=== PATIENT | female | born 1985 | race Caucasian/White ===

== ENCOUNTER 2018-09-25 21:14 | Emergency (ER) | payer OTHER ==
[2018-09-25 22:46] LABS: APPEARANCE, URINE HAZY (CLEAR); BACTERIA, URINE AUTO 1+ (NEGATIVE); BILIRUBIN, URINE AUTO NEGATIVE (NEGATIVE); BLOOD, URINE BLOOD 3+ (NEGATIVE); COLOR, URINE YELLOW (YELLOW); GLUCOSE, URINE (UA) AUTO NEGATIVE (NEGATIVE); KETONE, URINE AUTO NEGATIVE (NEGATIVE); LEUKOCYTE ESTERASE, URINE AUTO TRACE (NEGATIVE); MUCUS, URINE SMALL (NEGATIVE); NITRITE, URINE AUTO NEGATIVE (NEGATIVE); PROTEIN, URINE AUTO NEGATIVE (NEGATIVE); RBC, URINE AUTO TNTC /HPF (0-3); SQUAMOUS EPITHELIAL CELL UR AU 1 /HPF (0-6); UROBILINOGEN, URINE AUTO 0.2 mg/dL (0.0-2.0); WBC, URINE AUTO 17 /HPF (0-3)
[2018-09-25] MEDS: NS 1,000 ML IV (22:51)
[2018-09-25 22:54] LABS: BASO # 0.1 10^3/uL (0.0-0.2); BASO % 0.4 % (0.0-1.0); EOS # 0.2 10^3/uL (0.0-0.50); EOS % 1.7 % (0.0-3.0); HEMATOCRIT 41.7 % (36.0-47.0); HEMOGLOBIN 14.5 g/dl (12.0-15.5); IMMATURE GRANULOCYTE % 0.3 % (0-3.0); LYMPH # 3.4 10^3/uL (1.5-4.5); LYMPH % 29.7 % (24.0-44.0); MEAN CORPUSCULAR HEMOGLOBIN 31.9 pg (27.0-33.0); MEAN CORPUSCULAR HGB CONC 34.8 g/dl (32.0-36.5); MEAN CORPUSCULAR VOLUME 91.6 fl (80.0-96.0); MONO # 0.6 10^3/uL (0.0-0.8); NEUTROPHILS # 7.2 10^3/uL (1.8-7.7); NEUTROPHILS % 62.9 % (36.0-66.0); PLATELET COUNT, AUTOMATED 289 10^3/uL (150-450); RED BLOOD COUNT 4.55 10^6/uL (4.00-5.40); RED CELL DISTRIBUTION WIDTH 12.6 % (11.5-14.5); WHITE BLOOD COUNT 11.5 10^3/uL (4.0-10.0)
[2018-09-25 23:24] LABS: ANION GAP 14 MEQ/L (8-16); BLOOD UREA NITROGEN 14 MG/DL (7-18); CALCIUM LEVEL 8.6 MG/DL (8.5-10.1); CARBON DIOXIDE LEVEL 23 MEQ/L (21-32); CHLORIDE LEVEL 110 MEQ/L (98-107); CREATININE FOR GFR 0.77 MG/DL (0.55-1.30); GLOMERULAR FILTRATION RATE > 60.0 (>60); GLUCOSE, FASTING 89 MG/DL (70-100); HCG, SERUM QUANTITATIVE 357 MIU/ML; POTASSIUM SERUM 4.2 MEQ/L (3.5-5.1); SODIUM LEVEL 147 MEQ/L (136-145)
== END 2018-09-26 00:28 | disposition home or self-care (01) ==
LOC: M ED 09-26 00:28
DX: O20.8 Other hemorrhage in early pregnancy (principal)
CPT/HCPCS: 76801

== ENCOUNTER 2018-09-28 12:16 | Emergency (ER) | payer OTHER ==
[2018-09-28 13:09] LABS: BASO # 0.1 10^3/uL (0.0-0.2); BASO % 0.5 % (0.0-1.0); EOS # 0.2 10^3/uL (0.0-0.50); EOS % 1.7 % (0.0-3.0); HEMATOCRIT 42.1 % (36.0-47.0); HEMOGLOBIN 14.4 g/dl (12.0-15.5); IMMATURE GRANULOCYTE % 0.3 % (0-3.0); LYMPH # 2.8 10^3/uL (1.5-4.5); LYMPH % 30.5 % (24.0-44.0); MEAN CORPUSCULAR HEMOGLOBIN 31.8 pg (27.0-33.0); MEAN CORPUSCULAR HGB CONC 34.2 g/dl (32.0-36.5); MEAN CORPUSCULAR VOLUME 92.9 fl (80.0-96.0); MONO # 0.5 10^3/uL (0.0-0.8); MONO % 5.3 % (0.0-5.0); NEUTROPHILS # 5.8 10^3/uL (1.8-7.7); NEUTROPHILS % 61.7 % (36.0-66.0); PLATELET COUNT, AUTOMATED 261 10^3/uL (150-450); RED BLOOD COUNT 4.53 10^6/uL (4.00-5.40); RED CELL DISTRIBUTION WIDTH 12.8 % (11.5-14.5); WHITE BLOOD COUNT 9.3 10^3/uL (4.0-10.0)
[2018-09-28 13:31] LABS: KETONE, URINE AUTO RFX NEGATIVE (NEGATIVE); MUCUS, URINE RFX SMALL (NEGATIVE); NITRITE, URINE AUTO RFX NEGATIVE (NEGATIVE); RBC, URINE AUTO RFX TNTC /HPF (0-3); SPECIFIC GRAVITY UR AUTO RFX 1.019 (1.002-1.035); SQUAM EPITHELIAL CELL UR AURFX 2 /HPF (0-6); WBC, URINE AUTO RFX 4 /HPF (0-3)
[2018-09-28 13:40] LABS: HCG, SERUM QUANTITATIVE 526 MIU/ML
[2018-09-28 13:41] LABS: LEUKOCYTE ESTERASE UR AUTO RFX 1+ (NEGATIVE)
== END 2018-09-28 14:16 | disposition home or self-care (01) ==
LOC: M ED 12:16
DX: O20.0 Threatened abortion (principal); O99.280 Endocrine, nutritional and metabolic diseases complicating pregnancy, unspecified trimester; E05.90 Thyrotoxicosis, unspecified without thyrotoxic crisis or storm; Z88.5 Allergy status to narcotic agent; Z3A.00 Weeks of gestation of pregnancy not specified
CPT/HCPCS: 76801

== ENCOUNTER → 2018-09-28 | Outpatient (CLI) | payer OTHER ==
[2018-09-28 08:37] LABS: HCG, SERUM QUANTITATIVE 737 MIU/ML
== END ==
LOC: M LAB 07:23
DX: R79.89 Other specified abnormal findings of blood chemistry (principal)

== ENCOUNTER → 2018-09-30 | Outpatient (CLI) | payer OTHER ==
[2018-09-30 13:24] LABS: HCG, SERUM QUANTITATIVE 194 MIU/ML
== END ==
LOC: M LAB 11:50
DX: O00.80 Other ectopic pregnancy without intrauterine pregnancy (principal)
CPT/HCPCS: 84702

== ENCOUNTER → 2018-11-06 | Outpatient (CLI) | payer OTHER | LOC: M SMT 13:22 | PROVIDERS: ATTEND Advanced Practice Midwife | DX: N91.2 Amenorrhea, unspecified (principal) ==

== ENCOUNTER → 2018-11-08 | Outpatient (CLI) | payer OTHER | LOC: M LAB 16:58 | PROVIDERS: ATTEND Advanced Practice Midwife | DX: N91.2 Amenorrhea, unspecified (principal) ==

== ENCOUNTER 2018-11-22 13:31 | Emergency (ER) | payer OTHER ==
[~2018-11-22] VITALS: Ht 165.1 cm; Wt 90.9 kg
[2018-11-22] MEDS ORDERED: PRENTAB45 PO (13:44)
[2018-11-22 15:07] LABS: BASO % 0.4 % (0.0-1.0); EOS # 0.1 10^3/uL (0.0-0.50); EOS % 1.3 % (0.0-3.0); HEMOGLOBIN 13.4 g/dl (12.0-15.5); LYMPH # 2.8 10^3/uL (1.5-4.5); LYMPH % 28.1 % (24.0-44.0); MEAN CORPUSCULAR HEMOGLOBIN 31.3 pg (27.0-33.0); MEAN CORPUSCULAR HGB CONC 34.4 g/dl (32.0-36.5); MEAN CORPUSCULAR VOLUME 91.1 fl (80.0-96.0); MONO # 0.5 10^3/uL (0.0-0.8); NEUTROPHILS # 6.5 10^3/uL (1.8-7.7); NEUTROPHILS % 64.7 % (36.0-66.0); PLATELET COUNT, AUTOMATED 270 10^3/uL (150-450); RED BLOOD COUNT 4.28 10^6/uL (4.00-5.40); WHITE BLOOD COUNT 10.1 10^3/uL (4.0-10.0)
--- NOTE | 2018-11-22 15:42 | REP ---
Clinical: Vaginal bleeding. Dating and viability. Technique: Transabdominal and transvaginal first trimester obstetrical ultrasound with color Doppler evaluation. Findings: Single live early intrauterine is appreciated. Gestational sac with yolk sac and pole identified. Mckay-rump length of 3 mm corresponds to 5 weeks 6 days gestational age with estimated date of delivery 07/19/2019 . heart rate equals 95 beats per minute. No gross abnormalities are identified. Bilateral maternal ovaries are normal in appearance and vascularity without torsion. Impression: Single live early intrauterine at 5 weeks 6 days gestational age. Complete anatomical assessment should be performed and 19-20 weeks. Electronically Signed by Rufus Mejia MD 11/22/2018 03:34 P
[2018-11-22] MEDS ORDERED: LIDOCAINE 1% SDV 5 ML VIAL DILUENT ONE (16:00)
[2018-11-22] MEDS ORDERED: AZITHROMYCIN 250 MG TAB PO ONE (16:00)
[2018-11-22] MEDS ORDERED: cefTRIAXone SOD 250 MG VIAL (J0696) As Ordered ONE (16:00)
[2018-11-22 16:13] LABS: BLOOD UREA NITROGEN 9 MG/DL (7-18); GLUCOSE, FASTING 86 MG/DL (70-100)
[2018-11-22 16:14] LABS: CALCIUM LEVEL 8.8 MG/DL (8.5-10.1); CARBON DIOXIDE LEVEL 26 MEQ/L (21-32); CHLORIDE LEVEL 103 MEQ/L (98-107); CREATININE FOR GFR 0.72 MG/DL (0.55-1.30); GLOMERULAR FILTRATION RATE > 60.0 (>60); POTASSIUM SERUM 3.8 MEQ/L (3.5-5.1); SODIUM LEVEL 138 MEQ/L (136-145)
[2018-11-22] MEDS ORDERED: cefTRIAXone SOD 250 MG VIAL (J0696) IM ONE (16:15)
[2018-11-22 16:19] LABS: HCG, SERUM QUANTITATIVE 10137 MIU/ML
[2018-11-22 16:58] VITALS: BP 136/72
[2018-11-22 17:16] LABS: CHLAMYDIA DNA AMPLIFICATION NEGATIVE (NEGATIVE); GC DNA AMPLIFICATION NEGATIVE (NEGATIVE)
[2018-12-02] MEDS ORDERED: TYLE325T5 PO (15:24)
== END 2018-11-22 17:03 | disposition home or self-care (01) ==
LOC: M ED 13:31
DX: O20.0 Threatened abortion (principal); O23.511 Infections of cervix in pregnancy, first trimester; O99.281 Endocrine, nutritional and metabolic diseases complicating pregnancy, first trimester; Z87.59 Personal history of other complications of pregnancy, childbirth and the puerperium; Z79.899 Other long term (current) drug therapy; Z88.5 Allergy status to narcotic agent
CPT/HCPCS: 76801; 76817; 80048; 81001; 84702; 85025; 86900; 86901; 87086; 87210; 87491; 87591; 93976; 96372; 99284; J0696

== ENCOUNTER 2018-11-27 11:13 | Emergency (ER) | payer OTHER ==
[~2018-11-27] VITALS: Ht 165.1 cm; Wt 93.2 kg
[~2018-11-27 11:13] MED LIST: PRENTAB45 PO
[2018-11-27] MEDS ORDERED: NS 1,000 ML IV ONE (12:15)
[2018-11-27] MEDS ORDERED: ACETAMINOPHEN TAB 650MG DOSE (2X325MG) PO ONE (12:15)
[2018-11-27 13:27] LABS: BASO % 0.4 % (0.0-1.0); EOS % 0.3 % (0.0-3.0); HEMATOCRIT 40.5 % (36.0-47.0); HEMOGLOBIN 13.8 g/dl (12.0-15.5); LYMPH # 0.9 10^3/uL (1.5-4.5); LYMPH % 11.7 % (24.0-44.0); MEAN CORPUSCULAR HEMOGLOBIN 31.3 pg (27.0-33.0); MEAN CORPUSCULAR HGB CONC 34.1 g/dl (32.0-36.5); MEAN CORPUSCULAR VOLUME 91.8 fl (80.0-96.0); MONO # 0.5 10^3/uL (0.0-0.8); MONO % 6.8 % (0.0-5.0); NEUTROPHILS # 6.2 10^3/uL (1.8-7.7); NEUTROPHILS % 80.2 % (36.0-66.0); PLATELET COUNT, AUTOMATED 221 10^3/uL (150-450); RED BLOOD COUNT 4.41 10^6/uL (4.00-5.40); WHITE BLOOD COUNT 7.8 10^3/uL (4.0-10.0)
[2018-11-27 13:32] LABS: INFLUENZA A AMPLIFICATION POSITIVE (NEGATIVE); INFLUENZA B AMPLIFICATION NEGATIVE (NEGATIVE)
[2018-11-27] MEDS ORDERED: ALBUTEROL SULFATE 2.5 MG/0.5 ML INH NEB SOLN INH ONE (14:00)
[2018-11-27 14:12] LABS: BLOOD UREA NITROGEN 9 MG/DL (7-18); CALCIUM LEVEL 8.6 MG/DL (8.5-10.1); CARBON DIOXIDE LEVEL 24 MEQ/L (21-32); CHLORIDE LEVEL 102 MEQ/L (98-107); CREATININE FOR GFR 0.78 MG/DL (0.55-1.30); GLOMERULAR FILTRATION RATE > 60.0 (>60); GLUCOSE, FASTING 85 MG/DL (70-100); HCG, SERUM QUANTITATIVE 13291 MIU/ML; POTASSIUM SERUM 3.9 MEQ/L (3.5-5.1); SODIUM LEVEL 135 MEQ/L (136-145)
[2018-11-27] MEDS ORDERED: OSEL75CA PO (15:00)
[2018-11-27] MEDS ORDERED: VENTAER INH (15:00)
[2018-11-27 15:19] VITALS: BP 128/75
[2018-12-02] MEDS ORDERED: TYLE325T5 PO (15:24)
== END 2018-11-27 15:36 | disposition home or self-care (01) ==
LOC: M ED 11:13
DX: O99.511 Diseases of the respiratory system complicating pregnancy, first trimester (principal); O26.851 Spotting complicating pregnancy, first trimester; Z79.899 Other long term (current) drug therapy; Z88.5 Allergy status to narcotic agent

== ENCOUNTER 2018-12-04 14:45 | Day surgery (SDC) | payer OTHER ==
[~2018-12-04] VITALS: Ht 165.1 cm; Wt 92.5 kg
[~2018-12-04 14:45] MED LIST changes: +KETOROLAC 60 MG/2 ML VIAL (J1885) As Ordered ONE; +LIDOCAINE 2% INJ 100 MG/5 ML SDV (FOR ANES.) As Ordered ONE; +MIDAZOLAM INJ 2 MG/2 ML VIAL (J2250) As Ordered ONE; +ONDANSETRON 4MG/2ML VIAL (J2405) As Ordered ONE; +OSEL75CA PO; +PROPOFOL 200 MG/20 ML VIAL As Ordered ONE; +TYLE325T5 PO; +VENTAER INH; +dexameTHASONE 4 MG/ML 1ML VIAL (J1100) As Ordered ONE; +fentaNYL 100 MCG/2 ML INJECTION (J3010) As Ordered ONE
[2018-12-04] MEDS ORDERED: LR 1,000 ML IV ONE (15:00)
[2018-12-04] MEDS ORDERED: SCOPOLAMINE 1MG TRANSDERMAL PATCH As Ordered ONE (16:19)
[2018-12-04] MEDS ORDERED: SCOPOLAMINE 1MG TRANSDERMAL PATCH TOP ONE (16:45)
[2018-12-04] MEDS ORDERED: METOCLOPRAMIDE INJ 10MG/2ML VIAL (J2765) As Ordered ONE (16:56)
[2018-12-04] MEDS ORDERED: ACETAMINOPHEN 500 MG TAB PO ONE (18:00)
[2018-12-04] MEDS ORDERED: DOXYCYCLINE HYCLATE 100 MG TAB PO ONE (18:00)
[2018-12-04] MEDS ORDERED: LR 1,000 ML IV SCH ×2 (18:00)
[2018-12-04] MEDS ORDERED: PERCOCET 5MG/325MG TAB PO PRN (18:00)
[2018-12-04] MEDS ORDERED: METOCLOPRAMIDE INJ 10MG/2ML VIAL (J2765) IV PRN (18:00)
[2018-12-04] MEDS ORDERED: MEPERIDINE INJ 25 MG/ML VIAL (J2175) IV PRN (18:00)
[2018-12-04] MEDS ORDERED: ONDANSETRON 4MG/2ML VIAL (J2405) IV PRN (18:00)
[2018-12-04] MEDS ORDERED: fentaNYL 100 MCG/2 ML INJECTION (J3010) IV PRN (18:00)
[2018-12-04 20:30] VITALS: BP 141/73
--- NOTE | 2018-12-07 16:06 | RO ---
DATE OF PROCEDURE: 12/04/2018 PREOPERATIVE DIAGNOSIS: Missed . POSTOPERATIVE DIAGNOSIS: Possible complete . PROCEDURE: Dilation, evacuation, and curettage. SURGEON: Terell Gray MD LEATHER SKINNER: ANESTHESIA: General endotracheal. ESTIMATED BLOOD LOSS: Minimal. FINDINGS: No evidence of products of conception on exam or intraoperative ultrasound. Normal size uterus, midline posthion. Minimal bleeding. OPERATIVE SUMMARY: The patient was taken to the operating room where general endotracheal anesthesia was induced. She was prepped and draped in sterile fashion in the dorsal lithotomy position. The bladder was emptied with a catheter. A speculum was placed. The anterior lip of the cervix was grasped with a tenaculum. The cervix was dilated with tapered dilators. A #9 mm suction curette was placed through the internal os. Suction device was activated. The curette was gently rotated and no products of conception were noted to come through the suction tubing. A sharp curettage was performed. There was felt to be no products of conception retained in the uterus. A decision was made to use intraoperative ultrasound to guide the procedure. Abdominal ultrasound was performed during the procedure. A sharp curette was placed in the uterus and there was absolutely no evidence of intrauterine conception. There was no evidence of actual uterine either. Previous ultrasound both in the office and the hospital is reviewed. There was deemed to be very little chance of ectopic . A decision was made to terminate the procedure and order a stat quantitative hCG level. All instruments were removed. Sponge and instrument counts were correct. The patient was extubated and went to the recovery room.
== END 2018-12-04 20:55 | disposition home or self-care (01) ==
LOC: M SDC 14:45
PROVIDERS: ATTEND Specialist
DX: O02.1 Missed abortion (principal); K21.9 Gastro-esophageal reflux disease without esophagitis
CPT/HCPCS: 36415; 59820; 84702; 88305; J1100; J1885; J2250; J2405; J2765; J3010

== ENCOUNTER 2018-12-06 06:58 | Day surgery (SDC) | payer OTHER ==
[~2018-12-06] VITALS: Ht 165.1 cm; Wt 92.7 kg
[~2018-12-06 06:58] MED LIST changes: -KETOROLAC 60 MG/2 ML VIAL (J1885) As Ordered ONE; -LIDOCAINE 2% INJ 100 MG/5 ML SDV (FOR ANES.) As Ordered ONE; -MIDAZOLAM INJ 2 MG/2 ML VIAL (J2250) As Ordered ONE; -ONDANSETRON 4MG/2ML VIAL (J2405) As Ordered ONE; -PROPOFOL 200 MG/20 ML VIAL As Ordered ONE; -dexameTHASONE 4 MG/ML 1ML VIAL (J1100) As Ordered ONE; -fentaNYL 100 MCG/2 ML INJECTION (J3010) As Ordered ONE
[2018-12-06] MEDS ORDERED: SCOPOLAMINE 1MG TRANSDERMAL PATCH As Ordered ONE (07:51)
[2018-12-06] MEDS ORDERED: SCOPOLAMINE 1MG TRANSDERMAL PATCH TOP ONE (08:15)
[2018-12-06] MEDS ORDERED: BUPIVACAINE HCL 0.25% 30 ML VIAL As Ordered ONE (08:34)
[2018-12-06] MEDS ORDERED: NEOSTIGMINE 10 MG/10 ML VIAL (J2710) As Ordered ONE (08:59)
[2018-12-06] MEDS ORDERED: METOCLOPRAMIDE INJ 10MG/2ML VIAL (J2765) As Ordered ONE (08:59)
[2018-12-06] MEDS ORDERED: GLYCOPYRROLATE INJ 0.2 MG/ML 2 ML VIAL As Ordered ONE (08:59)
[2018-12-06] MEDS ORDERED: KETOROLAC 60 MG/2 ML VIAL (J1885) As Ordered ONE (08:59)
[2018-12-06] MEDS ORDERED: dexameTHASONE 4 MG/ML 1ML VIAL (J1100) As Ordered ONE (08:59)
[2018-12-06] MEDS ORDERED: PROPOFOL 200 MG/20 ML VIAL As Ordered ONE (08:59)
[2018-12-06] MEDS ORDERED: ONDANSETRON 4MG/2ML VIAL (J2405) As Ordered ONE (08:59)
[2018-12-06] MEDS ORDERED: fentaNYL 250 MCG/5 ML INJECTION (J3010) As Ordered ONE (08:59)
[2018-12-06] MEDS ORDERED: MIDAZOLAM INJ 2 MG/2 ML VIAL (J2250) As Ordered ONE (08:59)
[2018-12-06] MEDS ORDERED: ROCURONIUM BROMIDE 50 MG/5 ML VIAL As Ordered ONE (08:59)
[2018-12-06] MEDS ORDERED: LIDOCAINE 2% INJ 100 MG/5 ML SDV (FOR ANES.) As Ordered ONE (08:59)
[2018-12-06] MEDS ORDERED: OXYC1TAB23 PO (10:24)
[2018-12-06] MEDS ORDERED: HYDROMORPHONE HCL 0.5 MG/ 0.5 ML SYRINGE (J1170 PER 1) IV PRN (10:45)
[2018-12-06] MEDS ORDERED: fentaNYL 100 MCG/2 ML INJECTION (J3010) IV PRN (10:45)
[2018-12-06] MEDS ORDERED: LR 1,000 ML IV SCH ×2 (10:45)
[2018-12-06] MEDS ORDERED: PERCOCET 5MG/325MG TAB PO PRN ×2 (10:45)
[2018-12-06] MEDS ORDERED: ONDANSETRON 4MG/2ML VIAL (J2405) IV PRN (10:45)
[2018-12-06 11:10] VITALS: BP 123/71
[2018-12-06 11:40] VITALS: BP 117/57
[2018-12-06 12:10] VITALS: BP 105/57
[2018-12-06] MEDS ORDERED: ZOFR4SOL PO (13:00)
[2018-12-06] MEDS ORDERED: ONDANSETRON 4 MG TAB (S0181) PO SCH (13:00)
[2018-12-06] MEDS ORDERED: MOTR200T44 PO (14:11)
--- NOTE | 2018-12-08 09:55 | RO ---
DATE OF OPERATION: 12/06/2018 PREOPERATIVE DIAGNOSIS: Cornual ectopic . POSTOPERATIVE DIAGNOSIS: Left cornual ectopic . OPERATIVE PROCEDURE: SURGEON: Terell Gray MD MAINTENANCE OF WAY SUPERVISOR: ANESTHESIA: General endotracheal. ESTIMATED BLOOD LOSS: 10 mL. URINE OUTPUT: 200 mL. FINDINGS: Small mass of tissue at the left tubal ostium extending into the cornual region. There was a mild bulge in the left cornu as visualized laparoscopically, which extended into the left fallopian tube towards the isthmic region. She has otherwise normal-appearing fallopian tubes and ovaries, as well as normal-appearing uterus. Normal upper abdomen. OPERATIVE SUMMARY: The patient taken to the operating room, where general endotracheal anesthesia was induced. She was prepped and draped in sterile fashion in the dorsal lithotomy position. A Mayer catheter was placed. A Hulka tenaculum was placed using the manipulator. A periumbilical incision made with a scalpel. A Veress needle was place through this incision while tenting up on the abdomen. A saline drop test was used to ensure intraabdominal placement. A pneumoperitoneum was created. The Veress needle was removed. An 11-mm trocar using Visiport was inserted. Visualization of the endometrial cavity was placed using Visiport. An 11-mm scope and camera revealed the findings noted above. A 5-mm port was placed, and a grasping instrument was utilized to probe the adnexal structures. Attention was turned to the vagina. Tenaculum was removed, and speculum was placed. The anterior lip of the cervix was grasped with tenaculum. The cervix was dilated with taper dilators. A MyoSure hysteroscope was inserted through the internal os. Visualization of the endometrial cavity revealed the findings noted above. MyoSure device was used to remove tissue protruding from the left cornual region. At the end of the procedure, the endometrial cavity was completely void of any extra tissue and appeared normal. Both tubal ostia could be visualized after the procedure. The hysteroscope was removed. The Hulka tenaculum was replaced. Laparoscopy was performed again to ensure that there was no perforation or injury to the uterus, and everything appeared normal. There was still a slight bulge in the left cornual area. There is guarantee that all tissue could be removed in a minimally invasive approach. Possible the patient would require methotrexate treatment as an adjunct to surgical treatment. This will be determined at postoperative followup. The pneumoperitoneum was released. All instruments removed. The skin was closed with 4-0 Monocryl subcuticular sutures. Sponge, instrument, and needle counts were correct. The patient was extubated and went to recovery room in stable condition. MARTIN
== END 2018-12-06 14:40 | disposition home or self-care (01) ==
LOC: M SDC 06:58 → M PED 11:05 → M SDC 14:40
PROVIDERS: ATTEND Specialist
DX: O00.80 Other ectopic pregnancy without intrauterine pregnancy (principal); Z88.5 Allergy status to narcotic agent
CPT/HCPCS: 36415; 49320; 58579; 84702; 86850; 86900; 86901; J1100; J1885; J2250; J2405; J2710; J2765; J3010

== ENCOUNTER → 2018-12-16 | Outpatient (CLI) | payer OTHER ==
[~2018-12-16] MED LIST changes: +MOTR200T44 PO; +OXYC1TAB23 PO; +ZOFR4SOL PO
== END ==
LOC: M SMT 14:21
PROVIDERS: ATTEND Specialist
DX: O00.80 Other ectopic pregnancy without intrauterine pregnancy (principal)

== ENCOUNTER → 2019-02-11 | Outpatient (CLI) | payer OTHER ==
[2019-02-11 15:39] LABS: HCG, SERUM QUALITATIVE NEGATIVE (NEGATIVE)
== END ==
LOC: M LAB 14:52
PROVIDERS: ATTEND Physician Assistant
DX: Z32.00 Encounter for pregnancy test, result unknown (principal); Z3A.00 Weeks of gestation of pregnancy not specified

== ENCOUNTER → 2019-03-29 | Outpatient (REF) | payer OTHER | LOC: M LAB REF 12:21 | PROVIDERS: ATTEND Physician Assistant | DX: J02.9 Acute pharyngitis, unspecified (principal) ==

== ENCOUNTER → 2019-04-29 | Outpatient (CLI) | payer OTHER ==
[~2019-04-29] MED LIST changes: +PROG1CAP8 PO
== END ==
LOC: M LAB 14:37
PROVIDERS: ATTEND Obstetrics & Gynecology
DX: Z32.01 Encounter for pregnancy test, result positive (principal)

== ENCOUNTER → 2019-05-01 | Outpatient (CLI) | payer OTHER | LOC: M LAB 08:14 | PROVIDERS: ATTEND Obstetrics & Gynecology | DX: Z32.01 Encounter for pregnancy test, result positive (principal) ==

== ENCOUNTER 2019-05-02 14:31 | Emergency (ER) | payer OTHER ==
[~2019-05-02] VITALS: Ht 165.1 cm; Wt 95.5 kg
[~2019-05-02 14:31] MED LIST changes: -PROG1CAP8 PO
[2019-05-02 15:50] LABS: BASO # 0.1 10^3/uL (0.0-0.2); BASO % 0.5 % (0.0-1.0); EOS # 0.1 10^3/uL (0.0-0.50); EOS % 1.1 % (0.0-3.0); HEMATOCRIT 40.3 % (36.0-47.0); HEMOGLOBIN 13.5 g/dl (12.0-15.5); LYMPH # 3.2 10^3/uL (1.5-4.5); LYMPH % 30.4 % (24.0-44.0); MEAN CORPUSCULAR HEMOGLOBIN 31.5 pg (27.0-33.0); MEAN CORPUSCULAR HGB CONC 33.5 g/dl (32.0-36.5); MEAN CORPUSCULAR VOLUME 94.2 fl (80.0-96.0); MONO # 0.6 10^3/uL (0.0-0.8); MONO % 5.5 % (0.0-5.0); NEUTROPHILS # 6.6 10^3/uL (1.8-7.7); NEUTROPHILS % 62.1 % (36.0-66.0); PLATELET COUNT, AUTOMATED 264 10^3/uL (150-450); RED BLOOD COUNT 4.28 10^6/uL (4.00-5.40); WHITE BLOOD COUNT 10.6 10^3/uL (4.0-10.0)
[2019-05-02] MEDS ORDERED: PROG1CAP8 PO (16:02)
[2019-05-02 16:39] LABS: ALT/SGPT 29 U/L (12-78); BILIRUBIN,DIRECT 0.1 MG/DL (0.0-0.2); BILIRUBIN,TOTAL 0.3 MG/DL (0.2-1.0); BLOOD UREA NITROGEN 15 MG/DL (7-18); CARBON DIOXIDE LEVEL 27 MEQ/L (21-32); CHLORIDE LEVEL 106 MEQ/L (98-107); CREATININE FOR GFR 0.81 MG/DL (0.55-1.30); GLOMERULAR FILTRATION RATE > 60.0 (>60); GLUCOSE, FASTING 84 MG/DL (70-100); HCG, SERUM QUANTITATIVE 55717 MIU/ML; LIPASE 108 U/L (73-393); POTASSIUM SERUM 3.9 MEQ/L (3.5-5.1); SODIUM LEVEL 138 MEQ/L (136-145); TOTAL PROTEIN 7.3 GM/DL (6.4-8.2)
[2019-05-02 18:02] VITALS: BP 124/85
--- NOTE | 2019-05-03 08:17 | REP ---
EMERGENCY FIRST TRIMESTER OBSTETRIC SONOGRAPHY: HISTORY: Right lower quadrant pain. FINDINGS: Transabdominal and transvaginal scanning are performed. A single living intrauterine gestation is confirmed. The crown-rump length of the embryonic pole is 11 mm corresponding with a gestational age estimate of 7 weeks 2 days. heart rate is recorded at 147 beats per minute. No subchorionic hemorrhage is seen. There is a maternal right ovarian cystic area consistent with a corpus luteum. This measures 3.0 x 1.6 x 2.2 cm. IMPRESSION: Viable single intrauterine gestation at 7 weeks 2 days by crown-rump length. JD by sonography December 17, 2019. No complication is identified. Electronically Signed by Bjorn Meyer MD 05/03/2019 08:42 A
== END 2019-05-02 19:13 | disposition home or self-care (01) ==
LOC: M ED 14:31
DX: Z32.01 Encounter for pregnancy test, result positive (principal); R10.2 Pelvic and perineal pain; Z3A.01 Less than 8 weeks gestation of pregnancy; Z87.59 Personal history of other complications of pregnancy, childbirth and the puerperium; Z79.890 Hormone replacement therapy